=== PATIENT | male | born 1955 | race Caucasian/White ===

== ENCOUNTER 2017-12-28 19:45 | Emergency (ER) | payer BC, SELFPAY ==
[2017-12-28] VITALS (7 sets, daily range): BP systolic 155–213; BP diastolic 77–109; PULSE 76–103; RESP 12–22; TEMP 36.5; O2SAT 95–98; BMI 37.0
--- NOTE | 2017-12-28 20:24 | EKG12_ITS ---
Test Reason : SHOULDER PAIN Blood Pressure : / mmHG Vent. Rate : 096 BPM Atrial Rate : 096 BPM P-R Int : 148 ms QRS Dur : 104 ms QT Int : 358 ms P-R-T Axes : 055 041 010 degrees QTc Int : 452 ms Normal sinus rhythm Normal ECG Confirmed by JAG CRUZ, KELSIE ([id number]), managing editor STEVE WILLIAM ([id number] on 12/31/2017 1:28:37 PM Referred By: ANILA Confirmed By:KELSIE RM MD
--- NOTE | 2017-12-28 20:28 | RAD_ITS ---
STUDY: X-RAY CHEST REASON FOR EXAM: Male, 62 years old. Chest tightness TECHNIQUE: Frontal and lateral views of the chest. COMPARISON: None. FINDINGS: The lungs are clear and expanded. There is no demonstrated pleural abnormality. Normal size heart. Normal mediastinum and steve. Normal visualized pulmonary arteries. Normal visualized aortic arch and descending thoracic aorta. Normal visualized thoracic spine. Normal visualized ribs, clavicles, and shoulders. There is no demonstrated abnormality of the visualized soft tissue structures of the upper abdomen. RAD/Chest PA and Lateral IMPRESSION: Normal x-ray examination of the chest. Electronically Signed: Neo Salomon MD at 20:58 EDT , Service support ,
--- NOTE | 2017-12-28 20:30 | ED.RN ---
NO OLD EKG'S IN MUSE
[2017-12-28 20:42] LABS: Absolute Lymphocyte Count 5.68 X10^3/ul (0.83-4.51); Absolute Neutrophil Count 4.4 X10^3/uL (2.0-7.7); Basophil# 0.07 X10^3/uL; Basophil% 0.6 % (0-1); Eosinophil# 0.67 X10^3/uL; Eosinophils% 5.7 % (0-5); Hematocrit 44.5 % (40-54); Hemoglobin 15.4 g/dl (13.0-16.5); Lymphocyte # 5.68 X10^3/ul (4.0); Lymphocyte % 48.1 % (19-41); Mean Corp Hgb Conc 34.6 g/gl (32-36); Mean Corpuscular Hgb 32.8 pg (27.0-32.0); Mean Corpuscular Volume 94.9 fL (80-94); Mean Platelet Vol. 9.7 fl (6.2-12.0); Monocyte# 0.94 X10^3/uL; Neutrophil # 4.44 X10^3/uL (2.7-7.7); Neutrophil % 37.5 % (47-70); Platelet Count 234 K/mm3 (150-450); RBC Distribution Width CV 12.6 % (11.6-14.6); RBC Distribution Width SD 42.8 fl (35.1-43.9); Red Blood Count 4.69 M/mm3 (4.6-6.2); White Blood Count 11.8 K/mm3 (4.4-11.0)
[2017-12-28 20:47] LABS: Anion Gap 10 (5-15); BUN 14 mg/dL (7-18); BUN/Creat Ratio 11.9 RATIO (10-20); Calcium,Total 9.6 mg/dL (8.5-10.1); Chloride 103 mmol/L (98-107); Creatinine, Serum 1.18 mg/dL (0.70-1.30); EST Glomerular Filtration Rate 66 mL/min (>60); Est Glom Filt Rate - Afr Amer 80 mL/min (>60); Estimated Creatinine Clearance 64.91 ml/min; Glucose 114 mg/dL (74-106); Potassium 3.6 mmol/L (3.5-5.1); Sodium Level 137 mmol/L (136-145)
[2017-12-28 21:13] LABS: Differential Indicated SCAN CRITERIA MET; POSITIVE COUNT NO; POSITIVE DIFFERENTIAL YES; POSITIVE MORPHOLOGY NO
[2017-12-28 21:15] LABS: Anisocytosis RARE; Macrocytosis RARE; Platelet Estimate ADEQUATE (ADEQ)
--- NOTE | 2017-12-28 22:29 | ED.VISSUMM ---
- ER Visit Summary Date of Service: 12/28/17 Chief Complaint: Elevated blood pressure History of Present Illness: The patient is a 62 M history of prior hypertension but within the last year has been taken off his medication because his blood pressures are reading better. Recently moved from [facility] to [place] for a change in his job. Currently has no local primary care physician. Said he has had and felt real well today he had some atypical pressure behind his left shoulder blade. His blood pressures been running high today and he decided to come in to be evaluated. He denies any headache. He denies any chest pain or shortness of breath. He denies any recent exertional chest pain or shortness of breath. Denies any abdominal pain. No visual change. Physical Examination: Well-appearing middle-age male. Initial blood pressure 207/109. Afebrile. H EENT exam unremarkable. Pupils round reactive light. No facial droop or trauma. Neck nontender. Lungs there to auscultation bilaterally. Heart regular rate and rhythm rate about 95 no murmur. Chest wall nontender. Abdomen soft and nontender. Normal bowel sounds no peritoneal signs. Extremities moving all 4. Neurovascularly intact. Equal symmetrical radial pulses. Calves nontender no edema no cords equal symmetrical financial planning consultant strength 5 out of 5 dorsi plantar flexion intact. Back exam unremarkable. There is no signs of trauma. He describes the pain by his left scapula there is no signs of trauma. Neurologically is awake and alert with no focal motor or sensory deficits. NIH is 0. Test Results: CBC shows a white count 11.8 normal H&H. Electrolytes unremarkable normal creatinine and gap. Troponin is normal. Chest x-ray no acute abnormality normal cardiac silhouette and mediastinum read both by myself and the radiologist. EKG sinus rhythm rate of 96 no abnormality. No IL or ischemia. No old EKG available for comparison. Emergency Department Course and Treatment: Patient was not given any medication. Currently on repeat exam his blood pressure is 159/85. He states he feels better. Repeat exam is normal. He is without symptoms. Treatment Plan: Discharge home. Call and get a local primary care physician. Log blood pressures twice daily and follow-up. Return if feeling worse. Disposition: Discharge Impression: Acute on chronic hypertension This note was generated with [employer] software. It may contain incorrect words, spelling, and punctuation that were not noted in review of the chart prior to signing ED Disposition - Plan for ED Patient: Chief Complaint: Hypertension Referrals: Care Physician,No Primary [Primary Care Provider] -
--- NOTE | 2017-12-28 22:33 | ED.DCSUM_ITS ---
- ER Visit Summary Date of Service: 12/28/17 Chief Complaint: Elevated blood pressure History of Present Illness: The patient is a 62 M history of prior hypertension but within the last year has been taken off his medication because his blood pressures are reading better. Recently moved from [facility] to [place] for a change in his job. Currently has no local primary care physician. Said he has had and felt real well today he had some atypical pressure behind his left shoulder blade. His blood pressures been running high today and he decided to come in to be evaluated. He denies any headache. He denies any chest pain or shortness of breath. He denies any recent exertional chest pain or shortness of breath. Denies any abdominal pain. No visual change. Physical Examination: Well-appearing middle-age male. Initial blood pressure 207/109. Afebrile. H EENT exam unremarkable. Pupils round reactive light. No facial droop or trauma. Neck nontender. Lungs there to auscultation bilaterally. Heart regular rate and rhythm rate about 95 no murmur. Chest wall nontender. Abdomen soft and nontender. Normal bowel sounds no peritoneal signs. Extremities moving all 4. Neurovascularly intact. Equal symmetrical radial pulses. Calves nontender no edema no cords equal symmetrical santa's helper strength 5 out of 5 dorsi plantar flexion intact. Back exam unremarkable. There is no signs of trauma. He describes the pain by his left scapula there is no signs of trauma. Neurologically is awake and alert with no focal motor or sensory deficits. NIH is 0. Test Results: CBC shows a white count 11.8 normal H&H. Electrolytes unremarkable normal creatinine and gap. Troponin is normal. Chest x-ray no acute abnormality normal cardiac silhouette and mediastinum read both by myself and the radiologist. EKG sinus rhythm rate of 96 no abnormality. No IL or ischemia. No old EKG available for comparison. Emergency Department Course and Treatment: Patient was not given any medication. Currently on repeat exam his blood pressure is 159/85. He states he feels better. Repeat exam is normal. He is without symptoms. Treatment Plan: Discharge home. Call and get a local primary care physician. Log blood pressures twice daily and follow-up. Return if feeling worse. Disposition: Discharge Impression: Acute on chronic hypertension This note was generated with [employer] software. It may contain incorrect words, spelling, and punctuation that were not noted in review of the chart prior to signing ED Disposition - Plan for ED Patient: Chief Complaint: Hypertension Referrals: Care Physician,No Primary [Primary Care Provider] -
--- NOTE | 2017-12-28 22:33 | ED.DEP ---
ED Disposition - Plan for ED Patient: Disposition: Home or Assisted Living Chief Complaint: Hypertension Instructions: ED Hypertension Poss Referrals: Eliceo Ward MD [STAFF PHYSICIAN] - As soon as possible Additional Instructions: Log your blood pressures twice daily. Call and follow-up with a local primary care physician. Show the new blood pressure readings on exam and you can decide if you need to be started back on her blood pressure medication. Return to ER feeling worse.
== END 2017-12-28 22:37 | disposition home or self-care (01) ==
PROVIDERS: Emergency Provider Emergency Medicine
DX: I10 Essential (primary) hypertension (principal)
CPT/HCPCS: 71046; 80048; 84484; 85025; 93005; 99285; A4216